=== PATIENT | female | born 1970 | race Caucasian/White ===

== ENCOUNTER 2019-10-04 06:41 | Emergency (ER) | payer OTHER ==
[~2019-10-04] VITALS: Ht 167.6 cm; Wt 95.3 kg
[~2019-10-04 06:41] MED LIST: NORCO 5-325 TA1 EACH PO
[2019-10-04] MEDS ORDERED: Z-TUSS AC 2 MG118 ML PO (08:23)
[2019-10-04 08:34] VITALS: BP 120/88
--- NOTE | 2019-10-04 14:12 | EKG ---
[place] [address] ELECTROCARDIOGRAM REPORT Name: DAVID HOLDEN Room: [facility] ([place], [place])Delia#: [id number] Admission: 10/04/19 Attend Phys: Discharge: 10/04/19 Date of : 70 Report #: [id number] THIS REPORT FOR: //name// 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: : 1970 Requested By: Adolph Moya Order Number: [id number] MD: Hector Ramirez Measurements Intervals [place] Rate: 83 P: 70 VA: 174 QRS: 53 QRSD: 98 T: 25 QT: 385 QTc: 453 Interpretive Statements Sinus rhythm Baseline wander in lead(s) I,III,aVL,aVF No previous ECG available for comparison Electronically Signed On 10-04-2019 14:11:56 [employer] by Hector Ramirez [email or web address] <ELECTRONICALLY SIGNED> By: Hector Ramirez MD, [facility] 10/04/19 1411 0729 0729 Hector Ramirez MD, FACC /EPI
== END 2019-10-04 08:36 | disposition home or self-care (01) ==
LOC: M.ERS 06:41
DX: R07.89 Other chest pain (principal); F31.9 Bipolar disorder, unspecified; K21.9 Gastro-esophageal reflux disease without esophagitis; E11.9 Type 2 diabetes mellitus without complications; Z90.711 Acquired absence of uterus with remaining cervical stump; Z86.14 Personal history of Methicillin resistant Staphylococcus aureus infection; Z87.891 Personal history of nicotine dependence

== ENCOUNTER 2020-03-01 12:38 | Emergency (ER) | payer OTHER ==
[~2020-03-01] VITALS: Ht 167.6 cm; Wt 97.5 kg
[~2020-03-01 12:38] MED LIST changes: +Z-TUSS AC 2 MG118 ML PO
[2020-03-01] MEDS ORDERED: TRESIBA100 UNIT/1 (12:46)
[2020-03-01] MEDS ORDERED: OZEMPIC1 MG/0.75 (12:46)
[2020-03-01] MEDS ORDERED: NEXIUM40 MG PO (12:47)
[2020-03-01] MEDS ORDERED: ATIVAN0.5 M1 PO (12:47)
[2020-03-01 13:33] LABS: ABSOLUTE BASOPHILS 0.1 thou/uL (0.0-0.2); ABSOLUTE EOSINOPHILS 0.2 thou/uL (0.0-0.7); ABSOLUTE LYMPHOCYTES 2.9 thou/uL (0.8-5.3); ABSOLUTE MONOCYTES 0.4 thou/uL (0.0-1.2); ABSOLUTE NEUTROPHILS 4.9 thou/uL (1.6-8.1); BASOPHILS 0.7 %; EOSINOPHILS 2.3 %; HEMOGLOBIN 14.2 gm/dL (12.0-15.0); LYMPHOCYTES 33.9 %; MCH 28.7 pg (26.0-34.0); MCHC 33.7 g/dL (28.0-37.0); MCV 85.1 fL (80.0-100.0); MONOCYTES 5.3 %; MPV 7.9 fl. (7.2-11.1); NUCLEATED RBCS 0 /100WBC; PLATELET COUNT* 290 thou/uL (150-400); POLYS 57.8 %; RBC 4.94 mil/uL (4.20-5.00); RDW-CV 12.4 % (10.5-14.5); WBC 8.5 thou/uL (4.0-11.0)
[2020-03-01 13:52] LABS: APTT 26.8 Seconds (25.0-31.3)
[2020-03-01 13:54] LABS: ANION GAP 5 mmol/L (7-16); BUN 11 mg/dL (7-18); CALCIUM 8.1 mg/dL (8.5-10.1); CHLORIDE 104 mmol/L (98-107); CO2 30 mmol/L (21-32); CREATININE 0.6 mg/dL (0.6-1.3); GLUCOSE 125 mg/dL (70-99); POTASSIUM 3.7 mmol/L (3.5-5.1); SODIUM 139 mmol/L (136-145)
[2020-03-01 14:06] LABS: ALBUMIN 3.4 g/dL (3.4-5.0); ALKALINE PHOSPHATASE 104 U/L (46-116); CK-MB MASS < 0.5 ng/mL (<0.5-3.6); LIPASE 107 U/L (73-393); MAGNESIUM 1.9 mg/dL (1.8-2.4); NT-PRO BRAIN NAT PEPTIDE 17 pg/mL (<300); SGOT 19 U/L (15-37); SGPT 44 U/L (30-65); TOTAL BILIRUBIN 0.5 mg/dL (<0.1-1.0); TOTAL PROTEIN 7.3 g/dL (6.4-8.2)
[2020-03-01 14:24] VITALS: BP 120/69
--- NOTE | 2020-03-01 15:18 | EKG ---
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: [facility] : 1970 Requested By: Canelo Tomlin Order Number: [id number] MD: Hector Ramirez Measurements Intervals [place] Rate: 93 P: 61 SD: 173 QRS: 31 QRSD: 102 T: 22 QT: 358 QTc: 446 Interpretive Statements Sinus rhythm Anterior infarct, old possible Compared to ECG 10/04/2019 07:29:04 Myocardial infarct finding now present Electronically Signed On 03-01-2020 15:16:28 CDT by Hector Ramirez [email or web address] <ELECTRONICALLY SIGNED> By: Hector Ramirez MD, [facility] 03/01/20 1516 1242 1242 Hector Ramirez MD, [facility] /EPI
== END 2020-03-01 14:24 | disposition home or self-care (01) ==
LOC: M.ERS 12:38
PROVIDERS: Family Medicine
DX: B34.9 Viral infection, unspecified (principal); Z20.828 Contact with and (suspected) exposure to other viral communicable diseases; K21.9 Gastro-esophageal reflux disease without esophagitis; E11.9 Type 2 diabetes mellitus without complications; Z87.891 Personal history of nicotine dependence; Z90.711 Acquired absence of uterus with remaining cervical stump; Z86.14 Personal history of Methicillin resistant Staphylococcus aureus infection; Z79.4 Long term (current) use of insulin